=== PATIENT | male | born 1970 | race Caucasian/White ===

== ENCOUNTER 2023-03-29 10:07 | Emergency (ER) | payer BC, OTHER ==
[~2023-03-29] VITALS: Ht 175.3 cm; Wt 86.2 kg
--- NOTE | 2023-03-29 10:21 | NUR ---
seen and examined by
[2023-03-29] MEDS ORDERED: ACETAMINOPHEN 325 MG TABLET PO ONE (10:30)
[2023-03-29] MEDS ORDERED: AZITHROMYCIN 250 MG TABLET PO ONE (10:30)
[2023-03-29] MEDS ORDERED: CEFTRIAXONE 1 G in IV DEXTROSE 5% 50 ML IV ONE (10:30)
[2023-03-29] MEDS ORDERED: IV NORMAL SALINE 1000 ML BAG IV ONE (10:30)
[2023-03-29 10:53] LABS: *BILIRUBIN,URIN NEGATIVE (NEGATIVE); *BLOOD, URINE NEGATIVE (NEGATIVE); *CLARITY,URINE CLEAR (CLEAR); *COLOR,URINE YELLOW (YELLOW); *KETONES,URINE NEGATIVE (NEGATIVE); *UROBILINOGEN,URINE 0.2 E.U./dl (NORMAL); LEUKOCYTE ESTERASE ,URINE NEGATIVE (NEGATIVE); NITRITE, URINE NEGATIVE (NEGATIVE); UGLUCOSE NEGATIVE (NEGATIVE)
[2023-03-29] MEDS ORDERED: CEFTRIAXONE /D5W 50ML IVPB **ER PYXIS IV ONE (11:09)
[2023-03-29] MEDS ORDERED: ACETAMINOPHEN 325 MG TABLET ONE (11:10)
--- NOTE | 2023-03-29 11:27 | NUR ---
called pharmacy for azithromycin tablet refill. pyxis is out of stock
[2023-03-29 11:32] LABS: HEMATOCRIT 40.2 % (36.7-47.1); MEAN CORPUSCULAR HEMOGLOBIN 32.9 uug (23.8-33.4); MEAN CORPUSCULAR VOLUME 97.7 fL (73.0-96.2); PLATELET COUNT (AUTO) 209 K/uL (152-348)
[2023-03-29 11:45] LABS: CARBON DIOXIDE 20 mmol/L (21-32); CHLORIDE 102 mmol/L (98-107); CREATININE 0.8 mg/dL (0.6-1.3); POTASSIUM 5.1 mmol/L (3.5-5.1); UREA NITROGEN, BLOOD 17 mg/dL (7-18)
[2023-03-29] MEDS ORDERED: AZITHROMYCIN 250 MG TABLET ONE (11:45)
[2023-03-29 11:58] LABS: ALANINE AMINOTRANSFERASE 52 U/L (16-63); ALKALINE PHOSPHATASE 57 U/L (50-136); ASPARTATE AMINOTRANSFERASE 44 U/L (15-37); BILIRUBIN,DIRECT 0.1 mg/dL (0.0-0.2); BILIRUBIN,TOTAL 0.6 mg/dL (0.2-1.0); TOTAL PROTEIN, SERUM 6.9 g/dL (6.4-8.2)
[2023-03-29] MEDS ORDERED: LORATADINE 10 MG TABLET PO SCH (12:45)
[2023-03-29] MEDS ORDERED: LORATADINE 10 MG TABLET PO ONE (12:45)
[2023-03-29] MEDS ORDERED: LORATADINE 10 MG TABLET ONE (12:46)
[2023-03-29] MEDS ORDERED: AZIT500T PO (14:04)
[2023-03-29] MEDS ORDERED: LORA10TA7 PO (14:04)
--- NOTE | 2023-03-29 14:09 | NUR ---
Patient discharged to home in stable condition. Written and verbal after care instructions given. Patient verbalizes understanding of instructions. Stressed follow up or return to ER for worsening s/s.
[2023-03-29 14:11] VITALS: BP 110/70; TEMP 98; O2SAT 99
== END 2023-03-29 14:16 | disposition home or self-care (01) ==
LOC: ER 10:07
DX: J18.9 Pneumonia, unspecified organism (principal); E11.9 Type 2 diabetes mellitus without complications; Z20.822 Contact with and (suspected) exposure to COVID-19
CPT/HCPCS: 99285; 96365; 71045; 96361; 87426; 87081; 80076; 80048; 81003; 83880; 85025; 84145; 85730; 84484; 36415; 93005; 83605; 87040 ×3; J0696; J7040; A4663; Q0144